=== PATIENT | male | born 1950 | race Caucasian/White ===

== ENCOUNTER 2019-02-09 20:32 | Emergency (ER) | payer MEDICARE, BC ==
[~2019-02-09] VITALS: Ht 167.6 cm; Wt 80.9 kg
[~2019-02-09 20:32] MED LIST: ASPI-650 PO; BENA10TA4 PO; CRES5 PO; METO-448 PO
[2019-02-09 20:39] VITALS: Ht 167.6 cm; Wt 80.9 kg
[2019-02-09] MEDS ORDERED: SOD CHLORIDE 0.9% 500 ML IV STA (21:11)
--- NOTE | 2019-02-09 21:29 | ERD ---
ER Documentation Chief Complaint Chief Complaint [id number],c/o dizziness,near syncope,Hx AICD HPI 68-year-old male with a history of SVT, nonischemic cardiomyopathy with AICD brought in by ambulance from home after having a near syncopal episode. Patient states that he was sitting playing a game and started feeling dizzy. He stood up and walked to the bathroom. He had a small bowel movement. Afterwards when he got up and was walking back, he started feeling dizzy again and laid himself on the ground. He denies any fall or head injury. At that time he was not having any palpitations, chest pain, shortness of breath, headache. No nausea or vomiting. No diaphoresis. Currently he states he feels much better. Per EMS, he was orthostatic. Per the patient's son at bedside, he has had multiple episodes of vasovagal episodes in the past. 2 years ago he had a severe episode of dizziness and at that time he was having palpitations. He was found to have SVT and cardiomyopathy. Pacemaker was placed on that admission. Afterwards he has had episodes of dizziness that have not been cardiac related. ROS All systems reviewed and are negative except as per history of present illness. Medications Home Meds Reported Medications Cyanocobalamin (Vitamin B-12) (Vitamin B12) 2,500 Mcg Tablet, 2500 MCG PO DAILY, TAB 02/09/19 Magnesium Oxide* (Magnesium Oxide*) 400 Mg Tablet, 400 MG PO DAILY, TAB 02/09/19 Cholecalciferol* (Vitamin D3*) 1,000 Unit Tablet, 1000 UNIT PO DAILY, TAB 02/09/19 Carvedilol* (Carvedilol*) 6.25 Mg Tablet, 6.25 MG PO BID for 90 Days, #180 02/09/19 Losartan Potassium* (Losartan Potassium*) 50 Mg Tablet, 50 MG PO DAILY for 90 Days, #90 02/09/19 Donepezil* (Aricept*) 10 Mg Tablet, 10 MG PO DAILY for 90 Days, #90 02/09/19 Aspirin (Aspirin) 81 Mg Tablet, 81 MG PO DAILY 07/18/12 Discontinued Reported Medications Benazepril Hcl* (Benazepril Hcl*) 10 Mg Tablet, 10 MG PO DAILY 07/18/12 Rosuvastatin Calcium* (Crestor*) 5 Mg Tablet, 5 MG PO DAILY 07/18/12 Metoprolol Tartrate* (Lopressor*) 25 Mg Tab, 25 MG PO DAILY 07/18/12 Allergies Allergies: Coded Allergies: Penicillins (Unverified Allergy, Unknown, 02/09/19) PMhx/Soc History of Surgery: Yes (ICD) Anesthesia Reaction: No Hx Neurological Disorder: No Hx Respiratory Disorders: No Hx Cardiac Disorders: Yes (HTN,FRAN EJECTION FRACTION) Hx Psychiatric Problems: No Hx Miscellaneous Medical Probl: Yes (HIGH CHOLESTEROL) Hx Alcohol Use: No Hx Substance Use: No Hx Tobacco Use: No Smoking Status: Never smoker FmHx Family History: No diabetes Physical Exam Vitals Vital Signs Date Temp Pulse Resp B/P (MAP) Pulse Ox O2 O2 Flow FiO2 Time Delivery Rate 02/09/19 62 16 106/59 97 Room Air 23:40 (75) 02/09/19 66 16 105/59 96 Room Air 22:59 (74) 02/09/19 61 8 96/61 (73) 99 Room Air 21:43 02/09/19 98.4 60 15 116/75 99 20:39 (89) Physical Exam Const: No acute distress Head: Atraumatic Eyes: Normal Conjunctiva, PERRLA, EOMI, no nystagmus ENT: Dry mucous membranes. Normal External Ears, Nose and Mouth. Neck: Full range of motion. No meningismus. No JVD Resp: Clear to auscultation bilaterally Cardio: Regular rate and rhythm, no murmurs. 2+ distal pulses in all 4 extremities Abd: Soft, non tender, non distended. Normal bowel sounds Skin: No petechiae or rashes Back: No midline or flank tenderness Ext: No cyanosis, 1+ bilateral lower extremity edema, right greater than left, chronic per patient Neur: Awake and alert, oriented x3, normal speech, no facial asymmetry, cranial nerves intact, strength and sensation is intact in all 4 extremities Psych: Normal Mood and Affect Result Diagram: 02/09/19212902/09/192129 Results 24 hrs Laboratory Tests Test 02/09/19 21:29 02/09/19 21:30 02/09/19 22:50 Bedside Glucose 109 mg/dL White Blood Count 7.7 10^3/ul Red Blood Count 3.99 10^6/ul Hemoglobin 12.4 g/dl Hematocrit 38.4 % Mean Corpuscular Volume 96.2 fl Mean Corpuscular Hemoglobin 31.1 pg Mean Corpuscular 32.3 g/dl Hemoglobin Concent Red Cell Distribution Width 12.5 % Platelet Count 176 10^3/UL Mean Platelet Volume 9.4 fl Immature Granulocytes % 0.300 % Neutrophils % 66.8 % Lymphocytes % 19.9 % Monocytes % 10.2 % Eosinophils % 2.3 % Basophils % 0.5 % Nucleated Red Blood Cells % 0.0 /100WBC Immature Granulocytes # 0.020 10^3/ul Neutrophils # 5.1 10^3/ul Lymphocytes # 1.5 10^3/ul Monocytes # 0.8 10^3/ul Eosinophils # 0.2 10^3/ul Basophils # 0.0 10^3/ul Nucleated Red Blood Cells # 0.0 10^3/ul Sodium Level 141 mmol/L Potassium Level 4.5 mmol/L Chloride Level 108 mmol/L Carbon Dioxide Level 29 mmol/L Anion Gap 4 Blood Urea Nitrogen 23 mg/dl Creatinine 1.14 mg/dl Est Glomerular Filtrat > 60 mL/min Rate mL/min Glucose Level 114 mg/dl Calcium Level 9.5 mg/dl Troponin I < 0.012 ng/ml Urine Color YELLOW Urine Clarity SLIGHTLY CLOUDY Urine pH 5.0 Urine Specific [place] 1.027 Urine Ketones NEGATIVE mg/dL Urine Nitrite NEGATIVE mg/dL Urine Bilirubin NEGATIVE mg/dL Urine Urobilinogen NEGATIVE mg/dL Urine Leukocyte Esterase NEGATIVE Hubert/ul Urine Microscopic RBC 0 /HPF Urine Microscopic WBC 1 /HPF Urine Bacteria FEW /HPF Urine Mucus MANY /HPF Urine Hemoglobin NEGATIVE mg/dL Urine Glucose NEGATIVE mg/dL Urine Total Protein NEGATIVE mg/dl Current Medications Medications Dose Sig/Zeus Start Time Status Last (Trade) Ordered Route PRN Stop Time Admin Dose Reason Admin Sodium 500 ml @ Q1H STAT 02/09/19 DC 02/09/19 Chloride 500 mls/hr IV 21:11 02/09/19 21:42 22:10 Procedures/MDM EMERGENT LABS AND DIAGNOSTIC STUDIES: Lab Results above were reviewed and interpreted by me. CBC: no anemia or evidence of infection BMP: Mild elevation of BUN, possibly due to dehydration. no e/o clinically significant electrolyte abnormality severe acidosis, alkalosis, renal failure, diabetic ketoacidosis Troponin within normal limits, not indicative of cardiac ischemia 12-lead EKG was interpreted by Michelle Parmar MD: Demand pacemaker Sinus bradycardia with first-degree AV block with PVCs Left axis deviation Left bundle branch block No acute ST or T wave changes suggestive of acute ischemia or STEMI. Radiology Results as interpreted by Radiology below were reviewed by Yanet Parmar MD: Chest x-ray: No acute abnormalities Initial Nursing notes reviewed. Previous Medical Records requested via the Electronic Health Record. EMERGENCY DEPARTMENT COURSE / MEDICAL DECISION MAKING: The patients vitals initially showed borderline hypotension. The ECG did not show any concerning abnormalities. I considered but have a low suspicion for an arrhythmia, acute coronary syndrome, PE or a CVA or intracranial hemorrhage. he was given an IV fluid bolus with improvement of his blood pressure and his symptoms. He was ambulating in the ER with a steady gait and was not symptoma tic. Patient's near syncopal symptoms have stabilized while in the department and are suitable for outpatient follow up. I advised follow up with primary care physician in 1-2 days. Return precautions were discussed at bedside. Departure Diagnosis: Primary Impression: Near syncope Condition: Stable DI PARMAR MD February 09, 2019 21:29
[2019-02-09] MEDS ORDERED: DONE10TA7 PO (22:51)
[2019-02-09] MEDS ORDERED: MAGN400T28 PO (22:51)
[2019-02-09] MEDS ORDERED: CARV6.2579 PO (22:51)
[2019-02-09] MEDS ORDERED: CYAN25009 PO (22:51)
[2019-02-09] MEDS ORDERED: CHOL100062 PO (22:51)
[2019-02-09] MEDS ORDERED: LOSA50TA14 PO (22:51)
[2019-02-09 23:40] VITALS: BP 106/59; PULSE 62; RESP 16
== END 2019-02-09 23:41 | disposition home or self-care (01) ==
LOC: E/R 20:32
DX: R55 Syncope and collapse (principal); I10 Essential (primary) hypertension; Z79.82 Long term (current) use of aspirin
CPT/HCPCS: 36415; 71045; 80048; 81001; 81003; 82962; 84484; 85025; 99285; J7040; 93005